=== PATIENT | female | born 1965 | race Caucasian/White ===

== ENCOUNTER 2017-10-05 07:50 | Emergency (ER) | payer BC ==
[~2017-10-05] VITALS: Ht 165.1 cm; Wt 61.7 kg
[2017-10-05 08:02] VITALS: BP 119/76
== END 2017-10-05 08:59 | disposition home or self-care (01) ==
LOC: ER 07:51
DX: J06.9 Acute upper respiratory infection, unspecified (principal)
CPT/HCPCS: 99281